=== PATIENT | male | born 1960 | race Caucasian/White ===

== ENCOUNTER 2018-09-11 14:08 | Emergency (ER) | payer SELFPAY ==
[~2018-09-11] VITALS: Ht 172.7 cm; Wt 90.7 kg
[2018-09-11 14:40] VITALS: BP 106/61
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
[2018-09-11 15:16] LABS: APPEARANCE,URINE CLEAR; BILIRUBIN, URINE NEGATIVE (NEGATIVE); COLOR,URINE PALE YELLOW; GLUCOSE, URINE (UA) NEGATIVE (NEGATIVE); KETONES,URINE NEGATIVE (NEGATIVE); LEUKOCYTE ESTERASE ,URINE 2+ (NEGATIVE); NITRITE,URINE POSITIVE (NEGATIVE); PH,URINE 5 (4.5-8.0); PROTEIN,URINE NEGATIVE (NEGATIVE); UROBILINOGEN,URINE NORMAL MG/DL (0.0-1.0)
[2018-09-11 16:10] VITALS: BP 114/70
--- NOTE | 2018-09-11 16:10 | NUR ---
ED Nurse Note:pt. tells his name but it's hard to understand due to mumbling, sleeping ,VSS
[2018-09-11 19:15] VITALS: BP 110/72
[2018-09-11 21:10] VITALS: BP 124/82
[2018-09-11 23:13] VITALS: BP 122/79
[2018-09-12 01:10] VITALS: BP 130/78
[2018-09-12 03:19] VITALS: BP 122/79
[2018-09-12 04:53] VITALS: BP 139/65
--- NOTE | 2018-09-12 06:00 | NUR ---
ED Nurse Note: PT walked outside of ER without DC papers or homless DC check list. pt has not IV or ID band on. unable to reassess pt Vital signs or condition due to pt walking out of ER.
--- NOTE | 2018-09-14 00:07 | Cardiology Report ---
APPROVED REPORT EKG Measurement Heart [id number] Poor data quality, interpretation may be adversely affected Normal sinus rhythm Normal ECG
== END 2018-09-12 06:00 | disposition home or self-care (01) ==
LOC: EDBD 14:08 → EMR 14:18
DX: F10.20 Alcohol dependence, uncomplicated (principal); Z59.0 Homelessness
CPT/HCPCS: 70450; 80307; 81003; 87086; 87181; 93005; 99283